=== PATIENT | male | born 1965 | race Caucasian/White ===

== ENCOUNTER 2016-12-22 10:28 | Emergency (ER) | payer OTHER ==
[2016-12-22 10:33] VITALS: TEMP 97.5
[2016-12-22] MEDS ORDERED: ONDANSETRON 4 MG/2 ML VIAL IVP ONE (11:08)
[2016-12-22] MEDS ORDERED: NS 1,000 ML IV ONE ×2 (11:08→11:32)
[2016-12-22] MEDS ORDERED: HYDROmorphONE/DILAUDID 1 MG/ML SYR ONE (11:21)
[2016-12-22] MEDS ORDERED: LORazepam 2 MG/ML INJ ONE (11:22)
[2016-12-22] MEDS ORDERED: HYDROmorphONE/DILAUDID 1 MG/ML SYR IVP ONE (11:32)
[2016-12-22] MEDS ORDERED: LORazepam 2 MG/ML INJ IVP ONE (11:32)
--- NOTE | 2016-12-22 12:57 | EDPHY ---
H & P Time Seen by Provider: 12/22/16 12:26 HPI/ROS: CHIEF COMPLAINT: Abdominal pain, vomiting HISTORY OF PRESENT ILLNESS: 51-year-old male presents to the emergency department by private vehicle with multiple episodes of nausea or vomiting. Patient began vomiting around 3:00 p.m. yesterday, nearly 24 hours ago. He has vomited too numerous to count. He has had similar episodes he states over a dozen times in the past and they state they do not was wrong with me. No urinary symptoms. No fevers or chills. No recent travel. He does describe suprapubic pain as well as pain in his back. He denies chest pain or difficulty breathing. Denies fevers or chills. REVIEW OF SYSTEMS: Constitutional: No fever, no chills. Eyes: No double or blurry vision. ENT: No sore throat. Respiratory: No cough, no shortness of breath. Cardiac: No chest pain. Gastrointestinal: Abdominal pain and vomiting as above. No diarrhea. Genitourinary: No dysuria. Musculoskeletal: No neck or back pain. Skin: No rashes. Neurological: No headache. Past Medical/Surgical History: Appendectomy, hernia repair, tonsillectomy, depression Social History: Single and lives in [place] Smoking Status: Never smoked Physical Exam: General Appearance: Alert, no distress. 121/93, heart rate 100, 96% on room air. Afebrile. Eyes: Pupils equal and round. Extraocular motions are all intact. ENT: Mouth: Mucous membranes very dry. Respiratory: No wheezing, rhonchi, or rales, lungs are clear to auscultation. Cardiovascular: Regular rate and rhythm. Gastrointestinal: Abdomen is soft and nontender, no masses, no rebound or guarding, bowel sounds normal. No CVA tenderness bilaterally. Neurological: Alert and oriented x 3, cranial nerves II through XII grossly intact Skin: Warm and dry, no rashes. Musculoskeletal: Nontender to palpate along the cervical, thoracic or lumbar spine. Neck is supple. Extremities: Full range of motion and no peripheral edema. Psychiatric: Patient is oriented X 3, there is no agitation. Constitutional: Initial Vital Signs Temperature (C) 36.4 C 12/22/16 10:31 Heart Rate 100 12/22/16 10:31 Respiratory Rate 16 01/25/17 10:31 Blood Pressure 121/93 H 12/22/16 10:31 O2 Sat (%) 96 12/22/16 10:31 O2 Delivery Mode Room Air O2 (L/minute) 2 Allergies/Adverse Reactions: amitriptyline Allergy (Verified 10/02/16 02:21) eszopiclone [From Lunesta] Allergy (Verified 10/02/16 02:21) hydrocodone Allergy (Verified 10/02/16 00:50) ketorolac tromethamine [From Toradol] Allergy (Verified 10/02/16 02:21) nortriptyline Allergy (Verified 10/02/16 02:21) oxycodone Allergy (Verified 10/02/16 00:50) quetiapine fumarate [From Seroquel] Allergy (Verified 10/02/16 02:21) Home Medications: Medication Instructions Recorded Ondansetron Odt [Zofran Odt 4 mg 4 mg PO Q4 #10 tab 10/02/16 (*)] LORazepam [Ativan] 1 mg PO Q6-8PRN PRN #10 tab 12/22/16 Medical Decision Making ED Course/Re-evaluation: An IV was established. Initially laboratory studies could not be drawn because the patient was so dehydrated. He was given 2 L of IV normal saline as well as Zofran. He was given Ativan and Dilaudid IV as well. Patient was feeling much better. He drank juice and miguel storm and was comfortable being discharged home. I offered CT imaging of his abdomen and pelvis the patient declined. Patient states that he has had these episodes of vomiting although has not seen a computer numerical control programmer in quite some time. He was referred to GI [facility] as well as the on-call computer numerical control programmer, Dr. Nicholas Cox. Patient was instructed to return to the emergency department if he developed recurring vomiting, abdominal pain, fever, or if he felt worse in any way. Differential Diagnosis: Including but not limited to gastritis, bowel obstruction, acute appendicitis, urinary tract infection, pyelonephritis, cyclical vomiting syndrome, hyperemesis cannabinoid syndrome - Data Points Laboratory Results: Laboratory Results 12/22/16 12:52 12/22/16 12:52 12/22/16 12:52 WBC 13.80 H 10^3/uL (3.80-9.50) RBC 4.57 10^6/uL (4.40-6.38) Hgb 15.8 g/dL (13.7-17.5) Hct 44.6 % (40.0-51.0) MCV 97.6 fL (81.5-99.8) MCH 34.6 H pg (27.9-34.1) MCHC 35.4 g/dL (32.4-36.7) RDW 12.2 % (11.5-15.2) Plt Count 230 10^3/uL (150-400) MPV 9.2 fL (8.7-11.7) Neut % (Auto) 91.7 H % (39.3-74.2) Lymph % (Auto) 3.2 L % (15.0-45.0) [place] % (Auto) 4.6 % (4.5-13.0) Eos % (Auto) 0.0 L % (0.6-7.6) Baso % (Auto) 0.1 L % (0.3-1.7) Nucleat RBC Rel Count 0.0 % (0.0-0.2) Absolute Neuts (auto) 12.65 H 10^3/uL (1.70-6.50) Absolute Lymphs (auto) 0.44 L 10^3/uL (1.00-3.00) Absolute Monos (auto) 0.64 10^3/uL (0.30-0.80) Absolute Eos (auto) 0.00 L 10^3/uL (0.03-0.40) Absolute Basos (auto) 0.02 10^3/uL (0.02-0.10) Absolute Nucleated RBC 0.00 10^3/uL (0-0.01) Immature Gran % 0.4 % (0.0-1.1) Immature Gran # 0.05 10^3/uL (0.00-0.10) Sodium 142 mEq/L (134-144) Potassium 4.9 mEq/L (3.5-5.2) Chloride 108 mEq/L (97-110) Carbon Dioxide 24 mEq/l (22-31) Anion Gap 10 mEq/L (8-16) BUN 19 mg/dL (7-23) Creatinine 1.1 mg/dL (0.7-1.3) Estimated GFR > 60 Glucose 128 H mg/dL (70-100) Calcium 8.8 mg/dL (8.5-10.4) Total Bilirubin 0.8 mg/dL (0.1-1.4) Conjugated Bilirubin 0.2 mg/dL (0.0-0.5) Unconjugated Bilirubin 0.6 mg/dL (0.0-1.1) AST 35 IU/L (17-59) ALT 57 IU/L (21-72) Alkaline Phosphatase 57 IU/L (38-126) Total Protein 7.1 g/dL (6.3-8.2) Albumin 4.0 g/dL (3.5-5.0) Lipase 72.0 IU/L (23-300) Medications Given: Discontinued Medications Hydromorphone HCl (Dilaudid) 1 mg IVP EDNOW ONE Stop: 12/22/16 11:33 Last Admin: 12/22/16 11:36 Dose: 1 mg Sodium Chloride (Ns) 1,000 mls @ 0 mls/hr IV ONCE ONE PRN Reason: Wide Open Stop: 12/22/16 11:09 Last Admin: 12/22/16 11:36 Dose: 1,000 mls Sodium Chloride (Ns) 1,000 mls @ 0 mls/hr IV ONCE ONE PRN Reason: Wide Open Stop: 12/22/16 11:33 Last Admin: 12/22/16 11:37 Dose: 1,000 mls Lorazepam (Ativan Injection) 1 mg IVP EDNOW ONE Stop: 12/22/16 11:33 Last Admin: 12/22/16 11:36 Dose: 1 mg Ondansetron HCl (Zofran) 4 mg IVP EDNOW ONE Stop: 12/22/16 11:09 Last Admin: 12/22/16 11:10 Dose: 4 mg Departure - Departure Disposition: Home, Routine, Self-Care Clinical Impression: Vomiting Qualifiers: Vomiting type: unspecified Vomiting Intractability: non-intractable Nausea presence: with nausea Qualifier Code: (R11.2) Nausea with vomiting, unspecified Condition: Good Instructions: Acute Nausea and Vomiting (ED) Additional Instructions: Clear liquids and slowly advance diet as tolerated. Ativan as needed for recurring symptoms of vomiting. Follow up with computer numerical control programmer as discussed. Referrals: Nicholas Cox MD [Medical Doctor] - As per Instructions (Printer Helper on-call) Morro Rodriguez MD [Medical Doctor] - As per Instructions ([facility] ) Prescriptions: LORazepam [Ativan] 1 mg PO Q6-8PRN PRN #10 tab PRN Reason: P.r.n. vomiting
[2016-12-22 13:01] LABS: % IMMATURE GRANULYOCYTES 0.4 % (0.0-1.1); ABSOLUTE IMMATURE GRANULOCYTES 0.05 10^3/uL (0.00-0.10); ADD DIFF? NO; ADD MORPH? NO; ADD SCAN? NO; ATYPICAL LYMPHOCYTE FLAG 0 (0-99); FRAGMENT RBC FLAG 0 (0-99); HEMATOCRIT 44.6 % (40.0-51.0); HEMOGLOBIN 15.8 g/dL (13.7-17.5); LEFT SHIFT FLG 10 (0-99); LIPEMIA HEMOLYSIS FLAG 90 (0-99); MEAN CELL HEMOGLOBIN 34.6 pg (27.9-34.1); MEAN CELL HEMOGLOBIN CONCENTR. 35.4 g/dL (32.4-36.7); MEAN CELL VOLUME 97.6 fL (81.5-99.8); MEAN PLATELET VOLUME 9.2 fL (8.7-11.7); PLATELET CLUMPS FLAG 0 (0-99); PLATELET COUNT 230 10^3/uL (150-400); RED BLOOD CELL COUNT 4.57 10^6/uL (4.40-6.38); RED CELL DISTRIBUTION WIDTH 12.2 % (11.5-15.2)
[2016-12-22 13:26] LABS: ALANINE AMINOTRANSFERASE 57 IU/L (21-72); ALKALINE PHOSPHATASE 57 IU/L (38-126); ANION GAP 10 mEq/L (8-16); ASPARTATE AMINOTRANSFERASE 35 IU/L (17-59); BILIRUBIN,TOTAL 0.8 mg/dL (0.1-1.4); BILIRUBIN-CONJUGATED 0.2 mg/dL (0.0-0.5); BILIRUBIN-UNCONJUGATED 0.6 mg/dL (0.0-1.1); CALCIUM 8.8 mg/dL (8.5-10.4); CARBON DIOXIDE 24 mEq/l (22-31); CHLORIDE 108 mEq/L (97-110); CREATININE 1.1 mg/dL (0.7-1.3); GLOMERULAR FILTRATION RATE > 60; GLUCOSE 128 mg/dL (70-100); POTASSIUM 4.9 mEq/L (3.5-5.2); SODIUM 142 mEq/L (134-144); TOTAL PROTEIN 7.1 g/dL (6.3-8.2)
[2016-12-22 16:04] VITALS: BP 107/71; PULSE 89; RESP 18; O2SAT 94
== END 2016-12-22 16:04 | disposition home or self-care (01) ==
DX: R11.2 Nausea with vomiting, unspecified (principal); Z90.49 Acquired absence of other specified parts of digestive tract
CPT/HCPCS: 96361; 96374; 96375; 99284; J1170; J2405

== ENCOUNTER 2016-12-23 16:02 | Emergency (ER) | payer OTHER ==
[2016-12-23] MEDS ORDERED: NS 1,000 ML IV ONE ×2 (16:11→17:40)
[2016-12-23] MEDS ORDERED: ONDANSETRON 4 MG/2 ML VIAL IVP ONE ×2 (16:11→16:41)
--- NOTE | 2016-12-23 16:19 | UCPHY ---
H & P Time Seen by Provider: 12/23/16 16:11 Patient Type: Established HPI/ROS: CHIEF COMPLAINT: Abdominal pain, vomiting HPI: The patient is a 51-year-old male who was seen in the emergency department yesterday for the same complaints today, notably diffuse abdominal pain and multiple episodes of nonbloody emesis. Had a negative workup yesterday and apparently refused CT scan. He was brought to the emergency department today by his father with the same complaints. No new complaints. No fever. No trauma. The patient is not yet followed up with gastroenterology. REVIEW OF SYSTEMS: Aside from elements discussed in the HPI, a comprehensive 10-point review of systems was reviewed and is negative. PMH: History of chronic vomiting. No history of abdominal surgery. SOCIAL HISTORY: Denies alcohol abuse. Admits to marijuana use. PHYSICAL EXAM: General:Patient is alert, in no acute distress. He is not particularly interested in talking with me. He is periodically retching. ENT:Eyes are normal to inspection. ENT inspection normal. Neck: Normal inspection. Full range of motion. Respiratory:No respiratory distress. Breath sounds normal bilaterally. Cardiovascular: Regular rate and rhythm. Strong peripheral pulses. Normal cap refill. Abdomen:The abdomen is nontender to palpation. There are no peritoneal signs. There are normal bowel sounds. Back: Normal to inspection. No tenderness to palpation. Skin: Normal color. No rash. Warm and dry. Extremities: Normal appearance. Full range of motion. Neuro: Normal motor function. Normal sensory function. Smoking Status: Never smoked Constitutional: Initial Vital Signs Temperature (C) 37.1 C 12/23/16 16:17 Heart Rate 73 12/23/16 16:17 Respiratory Rate 26 H 12/23/16 16:17 Blood Pressure 122/93 H 12/23/16 16:17 O2 Sat (%) 100 12/23/16 16:17 O2 Delivery Mode Room Air Allergies/Adverse Reactions: amitriptyline Allergy (Verified 12/23/16 16:22) eszopiclone [From Lunesta] Allergy (Verified 12/23/16 16:22) hydrocodone Allergy (Verified 12/23/16 16:22) ketorolac tromethamine [From Toradol] Allergy (Verified 12/23/16 16:22) nortriptyline Allergy (Verified 12/23/16 16:22) oxycodone Allergy (Verified 12/23/16 16:22) quetiapine fumarate [From Seroquel] Allergy (Verified 12/23/16 16:22) Home Medications: Medication Instructions Recorded Ondansetron Odt [Zofran Odt 4 mg 4 mg PO Q4 #10 tab 10/02/16 (*)] LORazepam [Ativan] 1 mg PO Q6-8PRN PRN #10 tab 12/22/16 Metoclopramide [Reglan 10 mg tab 10 mg PO TID #20 tab 12/23/16 (*)] Medical Decision Making - Diagnostics Imaging: Abdominal x-ray: Interpreted by myself, impression: No signs of bowel obstruction or bowel perforation. Differential Diagnosis: I reviewed the patient's records on [facility]. These indicate multiple ER visits at multiple facilities over the last few years for the same complaints. He has had at least 2-CT scans of the abdomen pelvis and no definitive diagnosis for his abdominal pain and vomiting has been determined. The patient was treated with IV normal saline, 2 doses of Zofran and finally received complete resolution of symptoms with IM Haldol. His lab work was repeated and remains normal with no evidence of systemic infection, cholecystitis, renal insufficiency or electrolyte disturbance. His abdominal x- ray shows no sign of bowel obstruction or bowel perforation. Given the recurrent nature of his symptoms as well as multiple previous negative evaluations, this appears to represent cyclic vomiting. I do not think repeat CT imaging is necessary. I offered the patient transfer to ER hospitalization for further workup and treatment, but they are concerned about cost of medical care and refuse at this time. I will prescribe the patient metoclopramide. We discussed strict return precautions. I have cautioned him to stop using marijuana as this could represent cannabinoid hyperemesis syndrome. Father states that he has tolerated marijuana use as a substitute for alcohol given previous alcohol abuse, so it may be somewhat difficult for the patient to stop using marijuana suddenly. - Data Points Laboratory Results: Laboratory Results 12/23/16 16:18 12/23/16 16:18 12/23/16 12/23/16 16:18 16:15 WBC 8.69 10^3/uL (3.80-9.50) RBC 4.62 10^6/uL (4.40-6.38) Hgb 15.8 g/dL (13.7-17.5) Hct 44.3 % (40.0-51.0) MCV 95.9 fL (81.5-99.8) MCH 34.2 H pg (27.9-34.1) MCHC 35.7 g/dL (32.4-36.7) RDW 12.4 % (11.5-15.2) Plt Count 241 10^3/uL (150-400) MPV 9.0 fL (8.7-11.7) Neut % (Auto) 85.1 H % (39.3-74.2) Lymph % (Auto) 8.6 L % (15.0-45.0) [place] % (Auto) 5.9 % (4.5-13.0) Eos % (Auto) 0.1 L % (0.6-7.6) Baso % (Auto) 0.1 L % (0.3-1.7) Nucleat RBC Rel Count 0.0 % (0.0-0.2) Absolute Neuts (auto) 7.39 H 10^3/uL (1.70-6.50) Absolute Lymphs (auto) 0.75 L 10^3/uL (1.00-3.00) Absolute Monos (auto) 0.51 10^3/uL (0.30-0.80) Absolute Eos (auto) 0.01 L 10^3/uL (0.03-0.40) Absolute Basos (auto) 0.01 L 10^3/uL (0.02-0.10) Absolute Nucleated RBC 0.00 10^3/uL (0-0.01) Immature Gran % 0.2 % (0.0-1.1) Immature Gran # 0.02 10^3/uL (0.00-0.10) Sodium 139 mEq/L (134-144) Potassium 4.2 mEq/L (3.5-5.2) Chloride 105 mEq/L (97-110) Carbon Dioxide 23 mEq/l (22-31) Anion Gap 11 mEq/L (8-16) BUN 11 mg/dL (7-23) Creatinine 1.0 mg/dL (0.7-1.3) Estimated GFR > 60 Glucose 121 H mg/dL (70-100) Calcium 9.4 mg/dL (8.5-10.4) Troponin I < 0.012 ng/mL (0-0.034) Lipase 73.0 IU/L (23-300) Medications Given: Discontinued Medications Haloperidol Lactate (Haldol Injection) 5 mg IVP EDNOW ONE Stop: 12/23/16 16:51 Last Admin: 12/23/16 17:28 Dose: 5 mg Hydromorphone HCl (Dilaudid) 0.5 mg IVP EDNOW ONE Stop: 12/23/16 16:37 Last Admin: 12/23/16 16:47 Dose: 0.5 mg Sodium Chloride (Ns) 1,000 mls @ 0 mls/hr IV ONCE ONE PRN Reason: Wide Open Stop: 12/23/16 16:12 Last Admin: 12/23/16 16:25 Dose: 1,000 mls Ondansetron HCl (Zofran) 4 mg IVP EDNOW ONE Stop: 12/23/16 16:12 Last Admin: 12/23/16 16:31 Dose: 4 mg Ondansetron HCl (Zofran) 4 mg IVP EDNOW ONE Stop: 12/23/16 16:42 Last Admin: 12/23/16 16:45 Dose: 4 mg Departure - Departure Disposition: Home, Routine, Self-Care Clinical Impression: Cyclic vomiting syndrome Qualifiers: Vomiting Intractability: non-intractable Nausea presence: with nausea Qualifier Code: (G43.A0) Cyclical vomiting, not intractable Condition: Good Instructions: Acute Nausea and Vomiting (ED) Additional Instructions: You appear to have a condition known as cyclic vomiting. It is imperative that you be evaluated by a pari mutuel ticket seller as soon as possible, as this will likely recur without further evaluation. Make sure you let them know that you were referred by the ER for evaluation. In some patients, frequent marijuana use can actually cause episodes of severe vomiting, so we recommend you stop using marijuana. Return to the ER for severe pain, vomiting or fever. [place]errals[place],. [Primary Care Provider] - As per Instructions Prescriptions: Metoclopramide [Reglan 10 mg tab (*)] 10 mg PO TID #20 tab - PQRS PQRS Measurement: 134: Depression screening and followup, PRIME MD-PHQ2 (12 years and older) Over the last 2 weeks, how often have you been bothered by any of the following problems? 1. Feeling down, depressed, or hopeless? 2. Little interest or pleasure in doing things? Patient answered no to both 1 and 2 130: Documentation of medications. Reviewed all patient medications, doses, route and frequency. 226: Do you smoke? Yes. 51: 18 years old and older with diagnosis of COPD, spirometry performance. Spirometry not performed; equipment not available. Patient has no history of COPD 52: 18 years old and older with COPD and symptoms of COPD or FEV1<60% predicted prescribed a B Agonist. Spirometry not performed; equipment not available.
[2016-12-23 16:22] VITALS: TEMP 98.7
[2016-12-23 16:33] LABS: % IMMATURE GRANULYOCYTES 0.2 % (0.0-1.1); ABSOLUTE IMMATURE GRANULOCYTES 0.02 10^3/uL (0.00-0.10); ADD DIFF? NO; ADD MORPH? NO; ADD SCAN? NO; ATYPICAL LYMPHOCYTE FLAG 0 (0-99); FRAGMENT RBC FLAG 0 (0-99); HEMATOCRIT 44.3 % (40.0-51.0); HEMOGLOBIN 15.8 g/dL (13.7-17.5); LEFT SHIFT FLG 0 (0-99); LIPEMIA HEMOLYSIS FLAG 90 (0-99); MEAN CELL HEMOGLOBIN 34.2 pg (27.9-34.1); MEAN CELL HEMOGLOBIN CONCENTR. 35.7 g/dL (32.4-36.7); MEAN CELL VOLUME 95.9 fL (81.5-99.8); PLATELET CLUMPS FLAG 0 (0-99); PLATELET COUNT 241 10^3/uL (150-400); RED BLOOD CELL COUNT 4.62 10^6/uL (4.40-6.38); RED CELL DISTRIBUTION WIDTH 12.4 % (11.5-15.2)
[2016-12-23] MEDS ORDERED: HYDROmorphONE/DILAUDID 1 MG/ML SYR IVP ONE (16:36)
[2016-12-23 16:45] LABS: ANION GAP 11 mEq/L (8-16); CALCIUM 9.4 mg/dL (8.5-10.4); CARBON DIOXIDE 23 mEq/l (22-31); CHLORIDE 105 mEq/L (97-110); GLOMERULAR FILTRATION RATE > 60; GLUCOSE 121 mg/dL (70-100); POTASSIUM 4.2 mEq/L (3.5-5.2); SODIUM 139 mEq/L (134-144)
[2016-12-23] MEDS ORDERED: HALOPERIDOL LACT 5 MG/ML INJ IVP ONE (16:50)
--- NOTE | 2016-12-23 17:15 | CPEKG ---
Heart Rate: 56 RR Interval: 1071 P-R Interval: 120 QRSD Interval: 90 QT Interval: 424 QTC Interval: 410 P Donovan: 4 QRS Donovan: 37 T Wave Donovan: 52 EKG Severity - NORMAL ECG - EKG Impression: SINUS RHYTHM Electronically Signed By: Anthony Worrell 24-Dec-2016 19:20:58
--- NOTE | 2016-12-23 19:21 | DX ---
AP Supine Abdomen Reason for examination: Abdominal pain and vomiting in a 51-year-old male; no previous studies are av ailable for comparison. Findings: The bowel gas pattern is normal. No free air is identified on this supine study. Moderate fecal material is seen scattered throughout the colon. No small bowel dilatation is identified. Osse ous structures are negative for acute abnormality. There is mild elevation of the right hemidiaphragm. Impression: Abdomen negative for acute localizing features.
[2016-12-23 20:02] VITALS: BP 116/73; PULSE 72; RESP 16; O2SAT 95
== END 2016-12-23 19:40 | disposition home or self-care (01) ==
LOC: CED 16:02
DX: G43.A0 Cyclical vomiting, in migraine, not intractable (principal); R10.9 Unspecified abdominal pain; F12.10 Cannabis abuse, uncomplicated
CPT/HCPCS: 74000; 93005; 96361; 96372; 96374; 96375; G0463; J1170; J2405; 80048-PO; 83690-PO; 84484-PO; 85025-PO; 99215-PO

== ENCOUNTER 2017-10-03 09:29 | Emergency (ER) | payer OTHER, MEDICAID ==
[2017-10-03 09:40] VITALS: BP 131/78; PULSE 66; RESP 18; TEMP 98.4; O2SAT 94
[2017-10-03] MEDS ORDERED: CEPHALEXIN 500 MG CAP PO ONE (10:49)
--- NOTE | 2017-10-03 10:49 | EDPHY ---
H & P Stated Complaint: splinter l 2nd digit 2 days ago/inreased pain/swelling Time Seen by Provider: 10/03/17 09:47 HPI/ROS: Chief complaint: Left pointer finger splinter, now infected History of present illness: This is a 52-year-old male who presents to the emergency department reporting he got a splinter into his left pointer finger over a day ago. He was unable to remove it. He is now developing pain and swelling and redness. There is some pustular discharge. He denies abnormal coolness or paresthesias in the finger. He can still move it well. - Personal History Current Tetanus/Diphtheria Vaccine: Unsure - Medical/Surgical History Hx Asthma: No Hx Chronic Respiratory Disease: No Hx Diabetes: No Hx Cardiac Disease: No Hx Renal Disease: No Hx Cirrhosis: No Hx Alcoholism: No Hx HIV/AIDS: No Hx Splenectomy or Spleen Trauma: No Other PMH: APPY Umbilical hernia repair. No PCP - Social History Smoking Status: Never smoked - Physical Exam Exam: General: Alert, nontoxic Skin: There is a small pustule to the extensor surface of the left pointer finger over the DIP joint region, surrounding erythema. No edema. No red streaking. Musculoskeletal: Patient is flexing and extending his left pointer finger in the DIP, PIP and MCP joint well. Vascular: Capillary refill brisk in the left pointer finger. Neurologic: Sensation intact in left pointer finger. Constitutional: Initial Vital Signs Temperature (C) 36.9 C 10/03/17 09:38 Heart Rate 66 10/03/17 09:38 Respiratory Rate 18 10/03/17 09:38 Blood Pressure 131/78 H 10/03/17 09:38 O2 Sat (%) 94 10/03/17 09:38 O2 Delivery Mode Room Air Allergies/Adverse Reactions: amitriptyline Allergy (Verified 10/03/17 09:38) eszopiclone [From Lunesta] Allergy (Verified 10/03/17 09:38) hydrocodone Allergy (Verified 10/03/17 09:38) ketorolac tromethamine [From Toradol] Allergy (Verified 10/03/17 09:38) nortriptyline Allergy (Verified 10/03/17 09:38) oxycodone Allergy (Verified 10/03/17 09:38) quetiapine fumarate [From Seroquel] Allergy (Verified 10/03/17 09:38) Home Medications: Medication Instructions Recorded Cephalexin [Keflex (*)] 500 mg PO QID 7 Days cap 10/03/17 Medical Decision Making - Diagnostics Imaging Results: Imaging Impressions Finger X-Ray 10/03/17 10:07 Impression: 1. No foreign body or evidence of osteomyelitis. 2. CPPD arthropathy. Imaging: I viewed and interpreted images myself Procedures: The wound was anesthetized with lidocaine. It was de-roofed with an 11 blade scalpel. A small amount of pus was expressed and a wound culture was obtained. A splinter was noted and easily removed with forceps. Further exploration did not reveal other foreign body. Did not appear to disrupt the joint or tendon apparatus. The wound was irrigated. It was dressed. ED Course/Re-evaluation: Patient seen under the supervision of my primary supervising physician Dr. Tisha Vallejo. Patient presents to the emergency department with a splinter in his left pointer finger. The finger is neurovascularly intact. He has good musculoskeletal control. X-rays negative. Splinter has been identified and removed. Wound has been irrigated and dressed. Patient started on antibiotics for a localized cellulitis, no evidence of complications such as infectious tenosynovitis or lymphangitis or abscess. He is referred to hand surgery for recheck. Return precautions given. Patient voiced understanding and agreement with plan. Differential Diagnosis: Included but not limited to foreign body contamination, bony fracture, joint disruption, cellulitis, abscess, infectious tenosynovitis, lymphangitis - Data Points Microbiology Results: MICROBIOLOGY 10/03/17 11:01 Finger - Swab Gram Stain - Final Medications Given: Discontinued Medications Cephalexin HCl (Keflex) 500 mg PO EDNOW ONE PRN Reason: Protocol Stop: 10/03/17 10:50 Last Admin: 10/03/17 10:59 Dose: 500 mg Departure - Departure Disposition: Home, Routine, Self-Care Clinical Impression: Splinter Cellulitis, finger Qualifiers: Laterality: left Qualified Code(s): L03.012 - Cellulitis of left finger Condition: Good Instructions: Cellulitis (ED), Acute Wounds (ED) Additional Instructions: Follow-up with a hand doctor this week for recheck Take antibiotics as prescribed until finished even feeling better You can let your doctor know that a wound culture is pending of the infection If symptoms worsen or new symptoms develop return to the emergency room for recheck Referrals: NONE *PRIMARY CARE P,. [Primary Care Provider] - As per Instructions Lucila Bullard MD [Medical Doctor] - As per Instructions Prescriptions: Cephalexin [Keflex (*)] 500 mg PO QID 7 Days cap
== END 2017-10-03 11:04 | disposition home or self-care (01) ==
PROC: 0JCK0ZZ Extirpation of Matter from Left Hand Subcutaneous Tissue and Fascia, Open Approach (ICD-10-PCS; principal; 2017-10-03)
DX: S60.451A Superficial foreign body of left index finger, initial encounter (principal); L03.012 Cellulitis of left finger; W45.8XXA Other foreign body or object entering through skin, initial encounter

== ENCOUNTER 2018-04-12 19:49 | Emergency (ER) | payer OTHER ==
--- NOTE | 2018-04-12 20:17 | EDPHY ---
H & P Stated Complaint: FEVER THROAT PAIN AND COUGH Time Seen by Provider: 04/12/18 20:05 HPI/ROS: CHIEF COMPLAINT: Fever sore throat cough x2 days HISTORY OF PRESENT ILLNESS: 52-year-old male, nonsmoker, complete arrives via private vehicle complaining of fever, sore throat, nonproductive cough for the past 2 days. No chest pain. No back pain. No abdominal pain. No nausea or vomiting. REVIEW OF SYSTEMS: A ten point review of systems was performed and is negative with the exception of the items mentioned in the HPI PAST MEDICAL & SURGICAL HISTORY: No history of recurrent pharyngitis symptoms SOCIAL HISTORY:Nonsmoker PHYSICAL EXAM (Prior to examination, patient consented to physical exam, hands were washed and my usual and customary physical exam procedures followed) 1) GENERAL: Well-developed, well-nourished, alert and oriented. Appears to be in no acute distress. Appears comfortable, conversational. 2) HEAD: Normocephalic, atraumatic 3) HEENT: Pupils equal, round, reactive to light bilaterally. Sclera anicteric. Nasopharynx, oropharynx, clear, no lesions. No tonsillar enlargement or exudate. No trismus no drooling. No hot potato voice. No pointing of the uvula. Ears bilaterally with normal tympanic membranes. 4) NECK: Full range of motion, no meningeal signs. 5) LUNGS: Clear auscultation bilaterally, no wheezes, no rhonchi, no retractions. 6) HEART: Regular rate and rhythm, no murmur, no heave, no gallop. 7) ABDOMEN: No guarding, no rebound, no focal tenderness, negative McBurney's, negative Duval's, negative Rovsing's, negative peritoneal sign, no splenomegaly 8) MUSCULOSKELETAL: Moving all extremities, no focal areas of tenderness, no obvious trauma. No peripheral edema or discoloration. 9) BACK: No CVA tenderness, no midline vertebral tenderness, no fluctuance, no step-off, no obvious trauma, no visual or palpable abnormality. 10) SKIN: No rash, no petechiae. 11) Psychiatric: Patient is oriented X 3, there is no agitation. DIFFERENTIAL DIAGNOSIS: In no particular order including but limited to viral pharyngitis, strep pharyngitis, peritonsillar abscess, mononucleosis, epiglottitis - Personal History Current Tetanus/Diphtheria Vaccine: Yes Current Tetanus Diphtheria and Acellular Pertussis (TDAP): Yes - Medical/Surgical History Hx Asthma: Yes Hx Chronic Respiratory Disease: No Hx Diabetes: No Hx Cardiac Disease: No Hx Renal Disease: No Hx Cirrhosis: No Hx Alcoholism: No Hx HIV/AIDS: No Hx Splenectomy or Spleen Trauma: No Other PMH: APPY Umbilical hernia repair - Social History Smoking Status: Never smoked Constitutional: Initial Vital Signs Temperature (C) 37.1 C 04/12/18 19:53 Heart Rate 93 04/12/18 19:53 Respiratory Rate 18 04/12/18 19:53 Blood Pressure 122/78 H 04/12/18 19:53 O2 Sat (%) 95 04/12/18 19:53 O2 Delivery Mode Room Air Allergies/Adverse Reactions: amitriptyline Allergy (Verified 04/12/18 19:55) eszopiclone [From Lunesta] Allergy (Verified 04/12/18 19:55) hydrocodone Allergy (Verified 04/12/18 19:55) ketorolac tromethamine [From Toradol] Allergy (Verified 04/12/18 19:55) nortriptyline Allergy (Verified 04/12/18 19:55) oxycodone Allergy (Verified 04/12/18 19:55) quetiapine fumarate [From Seroquel] Allergy (Verified 04/12/18 19:55) Home Medications: Medication Instructions Recorded Fluticasone Propionate [Flonase 2 spray NS DAILY #1 spray.susp 04/12/18 Allergy Relief] Ipratropium 0.06% Nasal [Atrovent 2 sprays EACHNARE QID #1 mdi 04/12/18 0.06% Nasal (RX)] Medical Decision Making ED Course/Re-evaluation: 8:40 p.m.: This patient was re-evaluated with serial examinations. I did not have a high clinical suspicion for strep pharyngitis.. Strep screen was obtained which is negative for strep pharyngitis. Doubt epiglottitis. Doubt meningitis. Doubt retropharyngeal abscess or phlegmon or peritonsillar abscess. Doubt pneumonia in the presence of clear lungs bilaterally, normal saturations. At this time I do not think that imaging studies are indicated. Do not think that antibiotics are indicated. I think the patient's symptoms are more than likely secondary to viral etiology, possible allergic rhinitis with postnasal drainage. I prescribed medications for supportive care. I do not think that antibiotics are indicated at this time. Patient feels comfortable being discharged. Usual customary discharge precautions and instructions provided. Care of patient under supervision of secondary supervising physician Dr Rubio. - Data Points Laboratory Results: 04/12/18 04/12/18 Unknown 20:15 Group A Strep Screen NEGATIVE (NEGATIVE) Group A Strep DNA Pending Departure - Departure Disposition: Home, Routine, Self-Care Clinical Impression: Sore throat, Allergic rhinitis Condition: Good Instructions: Pharyngitis (ED), Allergic Rhinitis (ED) Additional Instructions: You were examined in the emergency department today for upper respiratory infection (URI) like symptoms. While more URIs are caused by viral illnesses, we cannot always exclude the possibility of a bacterial infection that may require treatment with antibiotics. Please be re-examined by a medical professional within 24 hours. Return to the emergency department immediately for change in breathing habits, change in voice, change in swallowing habits, change in mental status, or any other symptoms that concern you. Referrals: [facility],. [Clinic] - 1-2 days without fail Prescriptions: Fluticasone Propionate [Flonase Allergy Relief] 2 spray NS DAILY #1 spray.susp Ipratropium 0.06% Nasal [Atrovent 0.06% Nasal (RX)] 2 sprays EACHNARE QID #1 mdi
[2018-04-12 20:57] VITALS: BP 118/80
== END 2018-04-12 20:58 | disposition home or self-care (01) ==
DX: J02.9 Acute pharyngitis, unspecified (principal); J30.9 Allergic rhinitis, unspecified